=== PATIENT | male | born 1950 | race Hispanic/Latino ===

== ENCOUNTER → 2018-07-20 17:32 | Outpatient (CLI) | payer OTHER, SELFPAY ==
--- NOTE | 2018-07-20 | DI.RAD.S_ITS ---
PROCEDURE: XR CHEST 2V INDICATIONS: COUGH TECHNIQUE: 2 views of the chest were acquired. COMPARISON: [facility], CR, XR CHEST 2 VIEWS, 10/10/2017, 13:17. FINDINGS: Surgical changes and devices: Pacemaking device and leads stable over time. Lungs and pleura: No pleural effusions or pneumothorax. Lungs are mildly edematous. Mediastinum: Mediastinal contours are normal. Heart size is at or just above the upper limits of normal. Bones and chest wall: No suspicious bony abnormalities. Soft tissues appear unremarkable. IMPRESSION: Mild pulmonary edema superimposed on chronic CHF pattern. Dictated by: Guanakito Jimenez M.D. on 07/21/2018 at 8:11 Approved by: Guanakito Jimenez M.D. on 07/21/2018 at 8:12
[2018-07-20 19:41] LABS: Add Manual Diff / Slide Review NO; Basophils Percent Auto 0.7 % (0-2); Eosinophils Percent Auto 3.4 % (2-4); Hematocrit 36.9 % (41-53); Mean Corpuscular HGB Conc 32.5 % (30-36); Mean Corpuscular Hemoglobin 25.6 PG (26-34); Neutrophils Absolute Auto 6700 /uL (3000-5900); Neutrophils Percent Auto 71.9 % (50-75); Platelet Count 442 X10^3/uL (150-400); Red Blood Cell Count 4.67 X10^6/uL (4.5-5.9); Red Cell Distribution Width 16.1 % (11.6-14.8); White Blood Cell Count 9.3 X10^3/uL (4.5-11.0)
[2018-07-20 19:47] LABS: Alanine Aminotransferase 47 IU/L (21-72); Albumin 3.5 g/dL (3.5-5.0); Alkaline Phosphatase 116 U/L (38-126); Aspartate Aminotransferase 36 IU/L (17-59); Bilirubin Total 0.3 mg/dL (0.2-1.3); Blood Urea Nitrogen 24 mg/dL (9-20); Calcium 9.1 mg/dL (8.4-10.2); Carbon Dioxide 27 mmol/L (22-32); Chloride 99 mmol/L (98-107); Estimated Glomerular Filt Rate > 60.0 mL/min (>60); Globulin 3.4 g/dL (1.7-4.1); Glucose 146 mg/dL (80-110); HEMOLYSIS < 15 (0-50); Potassium 4.5 mmol/L (3.4-5.1); Sodium 138 mmol/L (137-145); Total Protein 6.9 g/dL (6.3-8.2)
== END ==
PROVIDERS: PCP Internal Medicine; Visit Provider Internal Medicine
DX: R05 Cough (principal); R06.00 Dyspnea, unspecified
CPT/HCPCS: 71046; 80053; 83880; 85025

== ENCOUNTER → 2018-08-01 12:46 | Outpatient (CLI) | payer OTHER, SELFPAY ==
--- NOTE | 2018-08-01 | DI.ECHO.S_ITS ---
[facility]---------+ [facility] +---------+ : : [address] : : : : [place] : : : : [id number] : : : : Phone: [phone]+ Echocardiogram Report + + :Name: ELLIOTT BELTRAN Study Date: 08/01/2018 Height: 66 in : :[facility] Exam Location: [place] Weight: 271 lb : : Gender: Male BSA: 2.3 m2 : :: 1950 Age: 68 yrs BP: 120/62 mmHg: :Reason For Study: CHF : :Ordering Physician: Dr. Yang : :Mohamud Performed By: Lay Young : :Referring: VI NGUYEN : + + Interpretation Summary The left ventricle is normal in size. Left ventricular systolic function is severely reduced. Left ventricular ejection fraction is estimated to be 20%. There is hypokinesis to akinesis along the anterior, apical, anteroseptum, and anterolateral segments. LV wall motion abnormalities are new and LVEF has signficantly reduced since prior echo stduy on 10/31/2013. There is thinning of myocardium that would suggest prior myocardial infarction. The right ventricle is grossly normal size. Right ventricular systolic function is borderline reduced. Right ventricular systolic pressure is estimated to be at least 58 mmHg plus the clinically estimated CVP which cannot be estimated on this exam. Both atria are normal in size. There is mild mitral regurgitation. There is mild to moderate tricuspid regurgitation. There is no other significant valvular heart disease. The ascending aorta is normal in size. Procedure: A two-dimensional transthoracic echocardiogram with color flow and Doppler was performed. The study quality was technically difficult. A contrast injection of Definity was performed to improve assessment of LV function. Most of the acoustic windows were suboptimal, but the best imaging was obtained from the parasternal window. Comparison is made with the echocardiogram of 10/31/2013. The patient has a paced rhythm. Left Ventricle: The left ventricle is normal in size. Left ventricular wall thickness is mildly increased. Left ventricular systolic function is severely reduced. Left ventricular ejection fraction is estimated to be 20%. There is hypokinesis to akinesis along the anterior, apical, anteroseptum, and anterolateral segments. LV wall motion abnormalities are new and LVEF has signficantly reduced since prior echo stduy on 10/31/2013. There is thinning of myocardium that would suggest prior myocardial infarction. Diastolic function could not be accurately assessed due to paced rhythm. Right Ventricle: The right ventricle is grossly normal size. Right ventricular systolic function is borderline reduced. Atria: Both atria are normal in size. Mitral Valve: The mitral valve leaflets appear mildly thickened, but open well. There is mild mitral regurgitation. Aortic Valve: The aortic valve is trileaflet. The aortic valve is mildly calcified. There is no hemodynamically significant valvular aortic stenosis. No aortic regurgitation is present. Tricuspid Valve: The tricuspid valve is normal in structure and function. There is mild to moderate tricuspid regurgitation. Right ventricular systolic pressure is estimated to be at least 58 mmHg plus the clinically estimated CVP which cannot be estimated on this exam. Pulmonic Valve: The pulmonic valve is not well seen, but is grossly normal. There is a trace or physiologic amount of pulmonic regurgitation. There is no other significant valvular heart disease. Great Vessels: The ascending aorta is normal in size. The inferior vena cava was not visualized. Pericardium/ Pleura There is an anterior echo-free space consistent with a fat pad. There is no pericardial effusion. There is no pleural effusion. MMode/2D Measurements & Calculations LVIDd: 5.2 cm LVOT diam: 2.1 cm LVIDs: 3.9 cm asc Aorta Diam: 3.2 cm FS: 24.2 % IVSd: 1.1 cm LVPWd: 1.3 cm LV muñoz. diameter/BSA (cm/m^2): 2.3 LV sys. diameter/BSA (cm/m^2): 1.7 LA A2 area: 19.0 cm2 RA long axis: 4.7 cm LA A4 area: 26.2 cm2 RA area: 17.9 cm2 LA length (vol): 6.5 cm RA vol: 57.2 ml LA vol: 65.3 ml RA : 25.1 ml/m2 LA vol index: 28.7 ml/m2 TAPSE: 1.7 cm Doppler Measurements & Calculations Ao V2 max: 128.8 cm/sec LVOT Max Felix: 93.7 cm/sec Ao V2 mean: 86.3 cm/sec LV V1 max P.5 mmHg Ao max P.6 mmHg LV V1 VTI: 15.7 cm Ao mean P.5 mmHg SAIDA(I,D): 2.5 cm2 Ao V2 VTI: 20.7 cm SAIDA(V,D): 2.4 cm2 sev ratio: 0.76 SAIDA indexed to BSA (cm^2/m^2): 1.1 TR max felix: 379.6 cm/sec TR max P.6 mmHg Reading Physician:SANDY
== END ==
PROVIDERS: PCP Internal Medicine; Visit Provider Internal Medicine
DX: I08.1 Rheumatic disorders of both mitral and tricuspid valves (principal); I50.9 Heart failure, unspecified
CPT/HCPCS: 93306; Q9957